=== PATIENT | male | born 1945 | race Caucasian/White ===

== ENCOUNTER 2019-05-21 08:14 | Outpatient (CLI) | payer OTHER | END 2019-05-21 08:22 | disposition home or self-care (01) | LOC: RX STUDY 08:14 | DX: K76.89 Other specified diseases of liver (principal) ==

== ENCOUNTER → 2019-07-20 | Outpatient (CLI) | payer OTHER | END | disposition home or self-care (01) | LOC: TOM 13:41 | DX: I51.7 Cardiomegaly (principal); I70.0 Atherosclerosis of aorta; J44.9 Chronic obstructive pulmonary disease, unspecified ==

== ENCOUNTER 2020-09-02 08:20 | Outpatient (CLI) | payer OTHER | END 2020-09-02 08:34 | disposition home or self-care (01) | LOC: SONOGRAMA 08:20 | PROVIDERS: ATTEND General Practice | DX: M25.511 Pain in right shoulder (principal); M06.4 Inflammatory polyarthropathy ==

== ENCOUNTER 2021-12-17 09:51 | Outpatient (CLI) | payer OTHER | END 2021-12-17 09:53 | disposition home or self-care (01) | LOC: RX STUDY 09:51 | PROVIDERS: ATTEND General Practice | DX: K44.9 Diaphragmatic hernia without obstruction or gangrene (principal) ==

== ENCOUNTER 2022-08-27 13:14 | Outpatient (CLI) | payer OTHER | END 2022-08-27 13:15 | disposition home or self-care (01) | LOC: NUCLEAR 13:14 | PROVIDERS: ATTEND General Practice | DX: M85.89 Other specified disorders of bone density and structure, multiple sites (principal); Z13.820 Encounter for screening for osteoporosis ==

== ENCOUNTER 2022-12-03 08:31 | Outpatient (CLI) | payer OTHER | END 2022-12-03 08:41 | disposition home or self-care (01) | LOC: RX STUDY 08:31 | PROVIDERS: ATTEND General Practice | DX: K76.89 Other specified diseases of liver (principal) ==

== ENCOUNTER 2022-12-28 07:39 | Outpatient (CLI) | payer OTHER | END 2022-12-28 07:48 | disposition home or self-care (01) | LOC: RAD 07:39 | PROVIDERS: ATTEND General Practice | DX: E04.9 Nontoxic goiter, unspecified (principal); M06.4 Inflammatory polyarthropathy; M25.561 Pain in right knee; M25.562 Pain in left knee ==

== ENCOUNTER 2023-01-28 10:53 | Outpatient (CLI) | payer OTHER | END 2023-01-28 11:05 | disposition home or self-care (01) | LOC: MRI 10:53 | PROVIDERS: ATTEND General Practice | DX: M25.562 Pain in left knee (principal); J43.0 Unilateral pulmonary emphysema [MacLeod's syndrome] | CPT/HCPCS: 73721 ==

== ENCOUNTER 2023-08-22 08:27 | Outpatient (CLI) | payer OTHER | END 2023-08-22 08:29 | disposition home or self-care (01) | LOC: NUCLEAR 08:27 | PROVIDERS: ATTEND General Practice | DX: D29.1 Benign neoplasm of prostate (principal); M51.9 Unspecified thoracic, thoracolumbar and lumbosacral intervertebral disc disorder; B18.2 Chronic viral hepatitis C ==

== ENCOUNTER 2024-09-14 09:08 | Outpatient (CLI) | payer OTHER | END 2024-09-14 10:16 | disposition home or self-care (01) | LOC: SONOGRAMA 09:08 | PROVIDERS: ATTEND General Practice | DX: Z12.5 Encounter for screening for malignant neoplasm of prostate (principal) ==

== ENCOUNTER 2024-09-28 13:04 | Outpatient (CLI) | payer OTHER | END 2024-09-28 13:06 | disposition home or self-care (01) | LOC: SONOGRAMA 13:04 | PROVIDERS: ATTEND Internal Medicine Endocrinology, Diabetes & Metabolism | DX: E04.2 Nontoxic multinodular goiter (principal); R59.0 Localized enlarged lymph nodes ==

== ENCOUNTER 2024-12-26 11:14 | Outpatient (CLI) | payer OTHER | END 2024-12-26 11:25 | disposition home or self-care (01) | LOC: MRI 11:14 | PROVIDERS: ATTEND General Practice | DX: M50.30 Other cervical disc degeneration, unspecified cervical region (principal) | CPT/HCPCS: 72141 ==

== ENCOUNTER 2025-01-08 10:02 | Outpatient (CLI) | payer OTHER | END 2025-01-08 10:03 | disposition home or self-care (01) | LOC: NUCLEAR 10:02 | PROVIDERS: ATTEND Internal Medicine Endocrinology, Diabetes & Metabolism | DX: Z13.820 Encounter for screening for osteoporosis (principal); M81.0 Age-related osteoporosis without current pathological fracture ==

== ENCOUNTER 2025-02-06 09:05 | Outpatient (CLI) | payer OTHER | END 2025-02-06 09:10 | disposition home or self-care (01) | LOC: SONOGRAMA 09:05 | PROVIDERS: ATTEND Internal Medicine Gastroenterology | DX: K74.60 Unspecified cirrhosis of liver (principal) ==

== ENCOUNTER 2025-04-17 13:01 | Outpatient (CLI) | payer OTHER | END 2025-04-17 13:04 | disposition home or self-care (01) | LOC: SONOGRAMA 13:01 | PROVIDERS: ATTEND General Practice | DX: R53.83 Other fatigue (principal) ==

== ENCOUNTER 2025-05-16 07:28 | Outpatient (CLI) | payer OTHER | END 2025-05-16 07:33 | disposition home or self-care (01) | LOC: NUCLEAR 07:28 | PROVIDERS: ATTEND General Practice | DX: D29.1 Benign neoplasm of prostate (principal); M51.9 Unspecified thoracic, thoracolumbar and lumbosacral intervertebral disc disorder; B18.2 Chronic viral hepatitis C ==

== ENCOUNTER 2025-06-07 15:32 | Outpatient (CLI) | payer OTHER | END 2025-06-07 15:38 | disposition home or self-care (01) | LOC: RAD 15:32 | PROVIDERS: ATTEND General Practice | DX: M06.4 Inflammatory polyarthropathy (principal) ==